=== PATIENT | female | born 1955 | race Caucasian/White ===

== ENCOUNTER → 2016-08-02 | Outpatient (CLI) | payer BC ==
[~2016-08-02] MED LIST: OMEG10007 PO; OXYC1TAB3 PO; TYLOTC500 PO
--- NOTE | 2016-08-02 12:26 | MAMMOGRAPHY REPORT ---
UNILATERAL RIGHT DIGITAL DIAGNOSTIC MAMMOGRAM TOMOSYNTHESIS WITH CAD: 08/02/2016 CLINICAL HISTORY: History of benign stereotactic biopsy of right breast calcifications November 2015. He re for short interval follow-up of other right breast calcifications. TECHNIQUE: Breast tomosynthesis in addition to standard 2D mammography was performed. Current study was also evaluated with a Computer Aided Detection (CAD) system. Right CC and MLO 2-D and tomosynt hesis images and spot magnification right cc and ML views were obtained. COMPARISON: Comparison is made to exams dated: 11/30/2015 mammogram, 11/30/2015 stereotactic biopsy, 11/23/2015 mammogram, 11/15/2015 mammogram, 11/09/2014 mammogram, and 11/05/2013 mammogram - [facility]. BREAST COMPOSITION: There are scattered areas of fibroglandular density in the right breast. FINDINGS: A biopsy marker clip is noted in the right upper outer quadrant from prior benign stereot actic biopsy (note that there was inferior migration of the biopsy marker clip). Again noted are 2 similar appearing groups of punctate and amorphous calcifications in the right upper outer quadrant . The more posterior group was sampled and yielded benign pathology on biopsy. The other anterior group which is similar in appearance is stable compared to the spot magnification views dated 016. Given that the anterior group appears similar to the biopsied group more posteriorly, and give n the stability, the calcifications are considered benign. The remainder of the right breast is stable compared to prior exams, without suspicious masses, calc ifications, or areas of architectural distortion noted. Other scattered benign-appearing calcificat ions are not significantly changed. Status post left mastectomy. IMPRESSION: ACR BI-RADS CATEGORY 2: BENIGN There is no mammographic evidence of malignancy in the right breast. A 1 year screening mammogram is recommended. The patient has been verbally notified of the results. Approximately 10% of breast cancers are not detected with mammography. A negative mammographic repor t should not delay biopsy if a clinically suggestive mass is present. Yaritza Pizano M.D. /:08/02/2016 10:21:49 Adjudication Specialist: Shauna Myrick RT(R)(M), [facility] letter sent: Normal 1/2 BI-RADS Code: ACR BI-RADS Category 2: Benign
== END | disposition home or self-care (01) ==
LOC: C.MAMM 09:56
PROVIDERS: ATTEND Obstetrics & Gynecology
DX: R92.1 Mammographic calcification found on diagnostic imaging of breast (principal)

== ENCOUNTER → 2018-02-03 | Outpatient (CLI) | payer OTHER ==
[~2018-02-03] MED LIST changes: -OXYC1TAB3 PO
--- NOTE | 2018-02-03 15:20 | MAMMOGRAPHY REPORT ---
UNILATERAL RIGHT DIGITAL SCREENING MAMMOGRAM TOMOSYNTHESIS WITH CAD: 02/03/2018 CLINICAL HISTORY: Asymptomatic. Personal history of breast cancer. TECHNIQUE: The study was acquired using full field digital technology and interpreted from soft copy. Breast tomosynthesis in addition to standard 2D mammography was performed. Current study was also ev aluated with a Computer Aided Detection (CAD) system. COMPARISON: Comparison is made to exams dated: 08/02/2016 mammogram, 11/30/2015 mammogram, 11/23/2015 m ammogram, 11/15/2015 mammogram, and 11/09/2014 mammogram - [facility]. BREAST COMPOSITION: There are scattered areas of fibroglandular density in right breast. FINDINGS: There are stable groupings of benign-appearing microcalcifications in the right upper outer quadrant, similar in appearance to the biopsied clustered which yielded benign pathology results. T here is a stable dumbbell-shaped biopsy marker clip also in the right upper outer quadrant posteriorl y. No new suspicious mass, architectural distortion or cluster of microcalcifications is seen in the right breast. IMPRESSION: ACR BI-RADS CATEGORY 1: NEGATIVE There is no mammographic evidence of malignancy. A 1 year screening mammogram is recommended.( 019) The patient will receive written notification of the results. Some breast cancers are not detected with mammography. A negative mammographic report should not loyd y biopsy if a clinically suggestive mass is present. Wandy Fowler M.D. ay/:02/03/2018 13:45:18 [employer]: RT Zaki(Mykel)(M), [facility] letter sent: Normal 1/2 BI-RADS Code: ACR BI-RADS Category 1: Negative
== END | disposition home or self-care (01) ==
LOC: C.MAMM 10:07
PROVIDERS: ATTEND Family Medicine
DX: Z12.31 Encounter for screening mammogram for malignant neoplasm of breast (principal)